=== PATIENT | female | born 1945 | race Hispanic/Latino ===

== ENCOUNTER 2019-12-20 19:05 | IRF | payer BC, MEDICARE, OTHER, SELFPAY ==
--- NOTE | 2019-12-20 21:43 | ADMGEN ---
This patient, Madeleine Aponte, was admitted to [facility] Room 222-01 at 1905. Patient/family oriented to hospital policies and general routines including ID bracelet, bed and alarms, visiting hours, pain management, procedures, bathroom and other care routines, personal items, smoking policy, room service/diet, and visiting hours. Valuables list has been completed. Information on how to activate the Rapid Response Team has been discussed. Patient/Family are encouraged to report perceived risks to care and to ask questions if they do not understand what they are told or what they should do.
[2019-12-20 21:59] VITALS: BP 125/62; PULSE 65; RESP 18; TEMP 36.1; O2SAT 98
[2019-12-20 22:00] VITALS: BMI 26.2
[2019-12-20] MEDS: AMITRIPTYLINE HCL 25 MG TABLET PO (22:42)
[2019-12-20] MEDS: IBUPROFEN 400 MG TABLET PO (23:19)
[2019-12-21] VITALS: BP 125/62; PULSE 65; RESP 18; TEMP 36.1; O2SAT 98
[2019-12-21] MEDS: IBUPROFEN 400 MG TABLET PO (05:05)
[2019-12-21 05:13] LABS: Basophils Percent Auto 0.4 % (0.2-1.2); Eosinophils Absolute Auto 0.2 K/mm3 (0-0.3); Eosinophils Percent Auto 3.8 % (0-4.4); Hematocrit 35.6 % (37.0-47.0); Hemoglobin 11.8 g/dL (12.0-15.0); Immature Granulocyte Absolute 0.02 K/mm3 (0.00-0.031); Immature Granulocyte Percent A 0.4 % (0-0.5); Lymphocytes Absolute Auto 1.28 K/mm3 (0.9-3.2); Lymphocytes Percent Auto 23.3 % (18.3-44.2); Mean Corpuscular HGB Conc 33.1 g/dl (32-36); Mean Corpuscular Hemoglobin 29.4 pg (26-34); Mean Corpuscular Volume 88.8 fl (80-100); Mean Platelet Volume 8.5 fl (7.4-10.4); Monocytes Absolute Auto 0.5 K/mm3 (0.1-0.6); Monocytes Percent Auto 9.1 % (2.6-8.5); Neutrophils Absolute Auto 3.5 K/mm3 (1.3-6.7); Platelet Count Result 222 k/mm3 (150-375); Red Blood Count 4.01 M/mm3 (4.2-5.4); Red Cell Distribution Width 13.1 % (11.5-14.5); White Blood Count 5.5 K/mm3 (4.5-10.0)
[2019-12-21 05:26] LABS: Blood Urea Nitrogen 19 mg/dL (7-17); Calcium 8.8 mg/dL (8.4-10.2); Carbon Dioxide 25 mmol/L (22-30); Chloride 101 mmol/L (98-107); Estimated CRCL calculation 57 ml/min; Estimated Glomerular Filt Rate > 60; Glucose 105 mg/dL (65-105); Potassium 4.4 mmol/L (3.4-5.0); Sodium 134 mmol/L (137-145)
[2019-12-21 05:27] LABS: Hemoglobin A1C 6.1 % (<5.7)
[2019-12-21 06:00] VITALS: BP 110/44; PULSE 60; RESP 18; TEMP 36.1; O2SAT 95
[2019-12-21] MEDS: CYANOCOBALAMIN 250 MCG TABLET PO (10:13)
[2019-12-21] MEDS: ROSUVASTATIN 5 MG TABLET PO (10:13)
[2019-12-21] MEDS: SENNA/DOCUSATE SODIUM TABLET 1 TAB PO ×2 (10:13→17:49)
[2019-12-21] MEDS: levETIRAcetam 500 MG TABLET 1000 MG PO ×2 (10:13→17:48)
[2019-12-21] MEDS: LORATADINE 10 MG TABLET PO (10:14)
[2019-12-21] MEDS: metFORMIN HCL 500 MG TABLET 1000 MG PO (10:14)
[2019-12-21] MEDS: FAMOTIDINE 20 MG TABLET 40 MG PO (10:14)
[2019-12-21] MEDS: ASPIRIN 81 MG ENTERIC TABLET PO (10:14)
[2019-12-21] MEDS: MICONAZOLE NITRATE 2% CREAM 30 GM TUBE 1 APPLIC TOPICAL ×2 (10:15→17:50)
[2019-12-21] MEDS: MELOXICAM 7.5 MG TABLET 15 MG PO (10:15)
[2019-12-21] MEDS: VALACYCLOVIR HCL 500 MG TABLET 1000 MG PO (10:16)
--- NOTE | 2019-12-21 11:04 | PCCCNOTE ---
On 12/21/19, the student, [Bud Erickson ], provided care and completed [facility] documentation on this patient. I have reviewed the student's documentation and agree with the findings.
[2019-12-21 11:26] LABS: Glucose Point of Care 150 (65-105)
--- NOTE | 2019-12-21 11:30 | WPDREHABHP ---
H&P: HPI History of Present Illness Chief complaint: right frontal subarachnoid hemorrhage Narrative: Madeleine Aponte is a 74 year old female HISTORY OF PRESENT ILLNESS: The patient's primary rehab impairment category is 0 2-brain dysfunction-traumatic The etiologic diagnosis is right frontal subarachnoid hemorrhage I saw this patient [id number] on December 21, 2019 at 11:30 a.m. The patient is a 74-year-old right-handed [place] woman with a past medical history of diabetes mellitus, hyperlipidemia, diverticulosis, and depression who was in her usual state of health until the morning of December 14, 2019 when she was walking to her car and slipped on a patch of ice. She fell backward and hit the side of the head. She did not lose consciousness as she could recall best. She was able to stand a but did notice some neck pain. She went to urgent care where head CT was performed. She fell again and December 15, 2019 in a similar manner while walking across her driveway. The patient recalls experiencing a sudden onset of tonic is contractures of her left arm and then and inability to recall subsequent events. Her sister witnessed the 2nd fall and reported loss of consciousness and whole body shaking lasting 1 to 2 minutes. She was taken to [facility] and while transporting to the CT scan did she experience an other event. Head CT demonstrated an area of right frontal hyperdensity concerning for small subarachnoid hemorrhage. The patient was transferred to [facility] for further management. A chest x-ray and urinalysis upon arrival were unremarkable. CT of the cervical him as the spine was negative for fracture brain MRI can from the subarachnoid hemorrhage with associated focal gyriform edema. She was loaded with Keppra 2 gram in the emergency room department. Her hospitalization has been significant for hypotension a mild traumatic brain injury herpes hyperlipidemia and depression. The hypertension was attributed to the fosphenytoin given at [facility] and has resolved, the mild traumatic brain injury is being treated with Keppra 1 gram b.i.d. for which she will remain for at least for 6 months herpes is chronic and she remains on her home dose of Valtrex, hyperlipidemia being treated with home dose of rosuvastatin and depression medications currently being held in light of the brain injury. She passed a swallow study and is on a regular consistent carbohydrate diet. Pain is controlled with oral pain medication. DVT prophylaxis with the sequential compression devices Therapy was initiated at the acute care facility and the patient transferred to us from [facility] on December 20, 2019 on FALLS OR SURGERIES: The patient has had no major surgeries in the 100 days prior to admission. They had falls in the past year. They had falls with injury in the past year. PAST MEDICAL HISTORY: type 2 diabetes mellitus, hyperlipidemia, herpes zoster of the sacral dermatome, diverticulosis, depression, myositis, shoulder pain. PAST SURGICAL HISTORY: Appendectomy, cardiac catheterization, cholecystectomy, colonoscopy, hernia repair. SOCIAL HISTORY: Patient lives independently in a 1 level home with the level entry. She is but her is stationed in [employer] [facility]. She is completely independent prior with no assistive device. She works part-time at the [employer]. Her plan is to return to work. FAMILY HISTORY: Please refer to my H and P PRIOR LEVEL OF FUNCTION: Eating was INDEPENDENT Oral Care was INDEPENDENT Toileting Hygiene was INDEPENDENT Shower/Bathing was INDEPENDENT Upper Body Dressing was INDEPENDENT Lower Body Dressing was INDEPENDENT Donning/[place] Footwear was INDEPENDENT Rolling Left and Right was INDEPENDENT Sit to Lying was INDEPENDENT Lying to Sitting was INDEPENDENT Sit to Stand was INDEPENDENT Bed to Chair Transfers was INDEPE
[2019-12-21] MEDS: ACETAMINOPHEN 500 MG TABLET 1000 MG PO (12:37)
[2019-12-21 12:47] VITALS: BMI 26.2
[2019-12-21 14:00] VITALS: BP 122/58; PULSE 68; RESP 20; TEMP 36.2; O2SAT 100
--- NOTE | 2019-12-21 14:45 | PCNSR ---
On 12/21/19, the student, Jaja Dunne, provided care and completed [facility] documentation on this patient. I have reviewed the student's documentation and agree with the findings.
[2019-12-21] MEDS: metFORMIN HCL 500 MG TABLET PO (17:49)
[2019-12-21 20:24] VITALS: BP 125/44; PULSE 66; RESP 18; TEMP 36.5; O2SAT 96
[2019-12-21 20:46] LABS: Glucose Point of Care 152 (65-105)
[2019-12-21] MEDS: AMITRIPTYLINE HCL 25 MG TABLET PO (21:08)
[2019-12-22 06:08] VITALS: BP 128/76; PULSE 72; RESP 20; TEMP 36.4; O2SAT 98
[2019-12-22 07:40] LABS: Glucose Point of Care 113 (65-105)
[2019-12-22] MEDS: CYANOCOBALAMIN 250 MCG TABLET PO (10:12)
[2019-12-22] MEDS: metFORMIN HCL 500 MG TABLET PO ×2 (10:12→18:09)
[2019-12-22] MEDS: ASPIRIN 81 MG ENTERIC TABLET PO (10:12)
[2019-12-22] MEDS: FAMOTIDINE 20 MG TABLET 40 MG PO (10:12)
[2019-12-22] MEDS: SENNA/DOCUSATE SODIUM TABLET 1 TAB PO ×2 (10:12→18:09)
[2019-12-22] MEDS: LORATADINE 10 MG TABLET PO (10:13)
[2019-12-22] MEDS: levETIRAcetam 500 MG TABLET 1000 MG PO ×2 (10:13→18:09)
[2019-12-22] MEDS: MELOXICAM 7.5 MG TABLET 15 MG PO (10:13)
[2019-12-22] MEDS: MICONAZOLE NITRATE 2% CREAM 30 GM TUBE 1 APPLIC TOPICAL ×2 (10:14→18:09)
[2019-12-22] MEDS: ROSUVASTATIN 5 MG TABLET PO (10:14)
[2019-12-22] MEDS: OMEGA 3 POLYUNSAT FATTY ACIDS 1 GM CAP PO (10:14)
[2019-12-22] MEDS: VALACYCLOVIR HCL 500 MG TABLET 1000 MG PO (10:14)
--- NOTE | 2019-12-22 11:36 | RPD ---
INDIVIDUALIZED PLAN OF CARE FOR Madeleine Aponte Brief Synthesis of Pre-Admission Screen, Post-Admission Evaluation and Therapy Evaluations: The patient presents to rehab with right frontal subarachnoid hemorrhage. Comorbidities include hypertension, hyperlipidemia, diabetes mellitus, hypotension, acute pain, herpes zoster, diverticulosis, depression, recurrent falls. The patient requires physician services for medical oversight, management of present comorbidities, neurology services, and pain management. The patient requires nursing services for frequent neuro checks, medication management and education, pressure relief and skin care management, monitoring of labs, diabetes management and education, and fall/safety precautions. Deficits include:ADLs, Balance, Endurance, Mobility, Pain Management, ROM, Safety, Strength, Transfers Swedish Masseuse/Case Management for: Discharge Planning and Patient/Family Counseling Physical Therapy: 5 days per week for 75 minutes. Treatments may include: Therapeutic Exercise, Gait Training, Neuromuscular Re-education, Transfer Training, Community Reintegration, Bed Mobility, Patient/Family Education, Wheelchair Mobility Group Therapy/Concurrent Therapy Rationales: -Improve attention span during functional activities in a distracted environment. -Enhance problem solving and/or adequate judgment skills during functional activities in a distracted environment. -Promote increased safety awareness in a distracted environment to reduce fall risk with functional tasks, transfers, and ambulation to allow a more safe, self-sufficient return to the home environment. -Improve dynamic balance skills to promote safety and independence with functional activities in a distracted environment for maximum gain. Occupational Therapy: 5 days per week for 75 minutes. Treatments may include: Therapeutic Exercise, Therapeutic Activity, Cognitive Training, Self-Care Transfer Training, Community Reintegration, Home Management, Patient/Family Education, Wheelchair Mobility Training, Energy Conservation Training Group Therapy/Concurrent Therapy Rationales: -Allow therapist to observe and teach generalization and carry-over of skills learned in individual therapy. -Enhance problem solving and sequencing skills during therapeutic activities in a distracted environment. -Promote increased safety awareness in a realistic setting to reduce fall risk with functional tasks due to visual and verbal distractions. -Increase functional level with ADLs, ADL transfers and use of adaptive equipment through therapeutic activities with others while promoting safety to allow a more safe, self-sufficient return home. Speech Therapy: 5 days per week for 30 minutes. Treatments may include: Dysphasia Therapy, Speech/Language/Communication Therapy, Cognitive Training, Patient/Family Education Group Therapy/Concurrent Therapy - Rationale: -Allow therapist to observe and teach generalization and carry-over of skills learned in individual therapy. -Improve comprehension skills with complex or abstract ideas through discussion in a realistic setting. -Enhance problem solving skills with complex issues during activities in a distracted environment. -Promote increased memory skills and concentration in a distracted environment for a safe transition home. -Improve attention and focus with language/communication skills in a realistic and supportive therapeutic setting. -Allow for practice of expression of basic needs and ideas through functional activities with others. Medical Prognosis: Good Anticipated Length of Stay: 7 days Rehab Goals: Eating Goal: 06-Independent Oral Hygiene Goal: 06-Independent Toileting Hygiene Goal: 06-Independent Shower/Bathe Self Goal: 06-Independent Upper Body Dressing Goal: 06-Independent Lower Body Dressing Goal: 06-Independent Putting On/Taking Off Footwear Goal: 06-Independent Rolling Left and Right Goal: 06-Independent Sit to Lying Goal: 06-
[2019-12-22] MEDS: IBUPROFEN 400 MG TABLET PO (12:19)
[2019-12-22 12:44] LABS: Glucose Point of Care 70 (65-105)
[2019-12-22 14:00] VITALS: BP 113/56; PULSE 72; RESP 18; TEMP 36.6; O2SAT 97
--- NOTE | 2019-12-22 14:39 | WPDNEURORHBP ---
Subjective Date/time seen: 12/22/19 14:39 Interval history: patient complains of positional headache when she stands up otherwise quite comfortable sitting and lying down is still has repetition of the words and cognitive deficit does not realize the fact on repeated answering that she did have subarachnoid hemorrhage and it has compromised her cognitive function but on the other hand quite pleasant and engage in therapy and motivated to go home denies any chest pain shortness of breath fever chills or sore throat Review of Systems Constitutional: Constitutional: Reports no additional constitutional complaints Eyes: Eyes: Reports no additional eye complaints ENT: Reports system reviewed and no additional complaints, except as documented Cardiovascular: Cardiovascular: Reports no additional cardiovascular complaints Respiratory: Respiratory: Reports no additional respiratory complaints Gastrointestinal: Gastrointestinal: Reports no additional gastrointestinal complaints Genitourinary: Genitourinary: Reports no additional female genitourinary complaints Musculoskeletal: Musculoskeletal: Reports no additional musculoskeletal complaints Integumentary/Breasts: Skin/Breast: Reports system reviewed and no additional complaints, except as docu Neurologic: Reports system reviewed and no additional complaints, except as documented Psychiatric: Psychiatric: Reports no additional psychiatric complaints Functional Status Ambulation Ability Ability to Ambulate 10 Feet: Contact Guard Ability to Ambulate 50 Feet With 2 Turns: Contact Guard Ability to Ambulate 150 Feet: Contact Guard Ambulation Assistive Devices: None Transfers Ability Ability to Transfer In/Out of Chair: Standby Assistance Exam Const: General: comfortable and no acute distress HENMT: General nose exam: Normal nares present Mouth: Yes moist mucous membranes Eyes: General: appearance normal, both eyes and all related structures Neck: Neck: supple and no JVD Resp: Effort & Inspection: normal respiratory effort Auscultation: clear to auscultation bilaterally Cardio: Rate: regular rate Rhythm: regular rhythm GI: GI Palp: Yes Soft to palpation Auscultation: normal bowel sounds Skin: General skin exam: normal color and no rashes or lesions noted Neuro: Other: patient has cognitive deficit with the loss of short-term memory repetitious in her expression otherwise no aphasia or dysarthria she does have a left more than the right-sided weakness DIS palates and higher level balance issues which needs to be observed for fall prevention Objective Data Vital Signs Vital Signs: Vital Signs - 24 hr 12/21/19 20:24 12/22/19 06:08 Temperature 36.5 C 36.4 C Pulse Rate 66 72 Respiratory Rate 18 20 Blood Pressure 125/44 L 128/76 Pulse Oximetry 96 98 Intake/Output Intake/Output: Intake & Output 12/19/19 12/20/19 12/21/19 12/22/19 23:59 23:59 23:59 23:59 Intake Total 720 360 Balance 720 360 Meds/Results Medications: Active Medications Generic Name Dose Route Start Last Admin Trade Name Freq PRN Reason Stop Dose Admin Acetaminophen 1,000 mg 12/20/19 21:35 12/21/19 12:37 Tylenol Tablet PO 1,000 mg TID PRN Administration MILD PAIN 1-3 Amitriptyline HCl 25 mg 12/20/19 21:00 12/21/19 21:08 Elavil PO 25 mg HS FLAKO Administration Aspirin 81 mg 12/21/19 09:00 12/22/19 10:12 Aspirin Ec PO 81 mg DAILY FLAKO Administration Cyanocobalamin 250 mcg 12/21/19 09:00 12/22/19 10:12 Vitamin B-12 Tab PO 250 mcg QAM FLAKO Administration Famotidine 40 mg 12/21/19 09:00 12/22/19 10:12 Pepcid PO 40 mg DAILY FLAKO Administration Fish Oil 1 gm 12/21/19 09:00 12/22/19 10:14 Lovaza PO 1 gm QAM FLAKO Administration Ibuprofen 400 mg 12/20/19 21:25 12/22/19 12:19 Motrin PO 400 mg Q4H PRN Administration Pain (Scale Score 4-6) Levetiracetam 1,000 mg 12/21/19 09:00 12/22/19 10:13 Ke
[2019-12-22 17:48] LABS: Glucose Point of Care 137 (65-105)
[2019-12-22] MEDS: AMITRIPTYLINE HCL 25 MG TABLET PO (20:57)
[2019-12-22 21:52] LABS: Glucose Point of Care 188 (65-105)
[2019-12-22 22:00] VITALS: BP 121/40; PULSE 64; RESP 18; TEMP 36.4; O2SAT 94
[2019-12-23 06:00] VITALS: BP 130/60; PULSE 62; RESP 18; TEMP 36.3; O2SAT 94
[2019-12-23 07:06] LABS: Glucose Point of Care 117 (65-105)
[2019-12-23] MEDS: metFORMIN HCL 500 MG TABLET PO ×2 (09:50→16:56)
[2019-12-23] MEDS: levETIRAcetam 500 MG TABLET 1000 MG PO ×2 (09:50→16:56)
[2019-12-23] MEDS: FAMOTIDINE 20 MG TABLET 40 MG PO (09:50)
[2019-12-23] MEDS: ROSUVASTATIN 5 MG TABLET PO (09:51)
[2019-12-23] MEDS: OMEGA 3 POLYUNSAT FATTY ACIDS 1 GM CAP PO (09:51)
[2019-12-23] MEDS: VALACYCLOVIR HCL 500 MG TABLET 1000 MG PO (09:51)
[2019-12-23] MEDS: MELOXICAM 7.5 MG TABLET 15 MG PO (09:51)
[2019-12-23] MEDS: SENNA/DOCUSATE SODIUM TABLET 1 TAB PO ×2 (09:52→16:56)
[2019-12-23] MEDS: ASPIRIN 81 MG ENTERIC TABLET PO (09:52)
[2019-12-23] MEDS: CYANOCOBALAMIN 250 MCG TABLET PO (09:53)
[2019-12-23] MEDS: LORATADINE 10 MG TABLET PO (09:53)
[2019-12-23] MEDS: MICONAZOLE NITRATE 2% CREAM 30 GM TUBE 1 APPLIC TOPICAL ×2 (09:54→16:56)
--- NOTE | 2019-12-23 11:15 | WPDNEURORHBP ---
Subjective Date/time seen: December 23, 2019 at 11:15 a.m. Interval history: patient is here with the traumatic subarachnoid hemorrhage with a history of having at least 2 or maybe 3 seizures she is recuperating quite well has not had any further seizures however has cognitive dysfunction the but Ativan her questions all the time I see her also complaining of positional headache when she gets up however doing fairly well engage in therapy without any nausea vomiting or change in overall neurological status no chest pain no shortness of breath no fever no chills sore throat and eating fairly well Review of Systems Constitutional: Constitutional: Reports no additional constitutional complaints Eyes: Eyes: Reports no additional eye complaints ENT: Reports system reviewed and no additional complaints, except as documented Cardiovascular: Cardiovascular: Reports no additional cardiovascular complaints Respiratory: Respiratory: Reports no additional respiratory complaints Gastrointestinal: Gastrointestinal: Reports no additional gastrointestinal complaints Genitourinary: Genitourinary: Reports no additional female genitourinary complaints Musculoskeletal: Musculoskeletal: Reports no additional musculoskeletal complaints Integumentary/Breasts: Skin/Breast: Reports system reviewed and no additional complaints, except as docu Neurologic: Reports system reviewed and no additional complaints, except as documented Functional Status Ambulation Ability Ability to Ambulate 10 Feet: Contact Guard Ability to Ambulate 50 Feet With 2 Turns: Contact Guard Ability to Ambulate 150 Feet: Contact Guard Ambulation Assistive Devices: None Transfers Ability Ability to Transfer In/Out of Chair: Independent Exam Const: General: comfortable and no acute distress HENMT: General nose exam: Normal nares present Mouth: Yes moist mucous membranes Eyes: General: appearance normal, both eyes and all related structures Neck: Neck: supple and no JVD Resp: Effort & Inspection: normal respiratory effort Auscultation: clear to auscultation bilaterally Cardio: Rate: regular rate Rhythm: regular rhythm GI: GI Palp: Yes Soft to palpation Auscultation: normal bowel sounds Skin: General skin exam: normal color and no rashes or lesions noted Neuro: Other: patient is well oriented time place and person however side has some memory deficit and keeps on asking the same questions repeatedly and focused on the positional headache which I have explained to her on many occasions almost every day that these will slowly taper off she does have a balance issues and the problem and the weakness particularly the left side more so than the right side otherwise quite stable and engage in therapy quite well Extrem: General: normal to inspection Objective Data Vital Signs Vital Signs: Vital Signs - 24 hr 12/23/19 14:00 12/23/19 22:00 12/24/19 06:00 Temperature 36.1 C L 36.5 C 36.2 C L Pulse Rate 73 63 56 L Respiratory Rate 18 16 16 Blood Pressure 140/72 131/65 122/61 Pulse Oximetry 99 98 96 Intake/Output Intake/Output: Intake & Output 12/21/19 12/22/19 12/23/19 12/24/19 23:59 23:59 23:59 23:59 Intake Total 720 720 800 240 Balance 720 720 800 240 Meds/Results Medications: Active Medications Generic Name Dose Route Start Last Admin Trade Name Freq PRN Reason Stop Dose Admin Acetaminophen 1,000 mg 12/20/19 21:35 12/23/19 16:55 Tylenol Tablet PO 1,000 mg TID PRN Administration MILD PAIN 1-3 Amitriptyline HCl 25 mg 12/20/19 21:00 12/23/19 20:21 Elavil PO 25 mg HS FLAKO Administration Aspirin 81 mg 12/21/19 09:00 12/24/19 09:41 Aspirin Ec PO 81 mg DAILY FLAKO Administration Cyanocobalamin 250 mcg 12/21/19 09:00 12/24/19 09:41 Vitamin B-12 Tab PO 250 mcg QAM FLAKO Administration Famotidine 40 mg 12/21/19 09:00 12/24/19 09:42 Pepcid PO 40 mg DAILY FLAKO Administration Fish Oil 1 gm 12/09
[2019-12-23 12:20] LABS: Glucose Point of Care 68 (65-105)
[2019-12-23 14:00] VITALS: BP 140/72; PULSE 73; RESP 18; TEMP 36.1; O2SAT 99
[2019-12-23] MEDS: ACETAMINOPHEN 500 MG TABLET 1000 MG PO (16:55)
[2019-12-23 17:21] LABS: Glucose Point of Care 112 (65-105)
[2019-12-23] MEDS: AMITRIPTYLINE HCL 25 MG TABLET PO (20:21)
[2019-12-23 21:26] LABS: Glucose Point of Care 122 (65-105)
[2019-12-23 22:00] VITALS: BP 131/65; PULSE 63; RESP 16; TEMP 36.5; O2SAT 98
[2019-12-24 06:00] VITALS: BP 122/61; PULSE 56; RESP 16; TEMP 36.2; O2SAT 96
[2019-12-24 07:07] LABS: Glucose Point of Care 101 (65-105)
[2019-12-24] MEDS: metFORMIN HCL 500 MG TABLET PO ×2 (09:41→18:01)
[2019-12-24] MEDS: SENNA/DOCUSATE SODIUM TABLET 1 TAB PO (09:41)
[2019-12-24] MEDS: CYANOCOBALAMIN 250 MCG TABLET PO (09:41)
[2019-12-24] MEDS: ASPIRIN 81 MG ENTERIC TABLET PO (09:41)
[2019-12-24] MEDS: levETIRAcetam 500 MG TABLET 1000 MG PO ×2 (09:42→18:02)
[2019-12-24] MEDS: VALACYCLOVIR HCL 500 MG TABLET 1000 MG PO (09:42)
[2019-12-24] MEDS: LORATADINE 10 MG TABLET PO (09:42)
[2019-12-24] MEDS: MICONAZOLE NITRATE 2% CREAM 30 GM TUBE 1 APPLIC TOPICAL ×2 (09:42→18:01)
[2019-12-24] MEDS: OMEGA 3 POLYUNSAT FATTY ACIDS 1 GM CAP PO (09:42)
[2019-12-24] MEDS: MELOXICAM 7.5 MG TABLET 15 MG PO (09:42)
[2019-12-24] MEDS: ROSUVASTATIN 5 MG TABLET PO (09:42)
[2019-12-24] MEDS: FAMOTIDINE 20 MG TABLET 40 MG PO (09:42)
[2019-12-24 12:15] LABS: Glucose Point of Care 124 (65-105)
[2019-12-24 14:00] VITALS: BP 128/66; PULSE 62; RESP 18; TEMP 36.4; O2SAT 98
--- NOTE | 2019-12-24 14:12 | WPDNEURORHBP ---
Subjective Date/time seen: 12/24/19 14:12 Interval history: this 74-year-old woman is here after suffering from traumatic subarachnoid hemorrhage followed by seizure activity and doing fairly well she is definitely better in the past 24 hours and is not asking repetitive question as she did before the headache which is positional is improving quite a bit and she was able to walk 600 feet with little assistance without any significant headache nausea vomiting chest pain shortness of breath etc she did not have any further seizures since she has been here Review of Systems Constitutional: Constitutional: Reports no additional constitutional complaints Eyes: Eyes: Reports no additional eye complaints ENT: Reports system reviewed and no additional complaints, except as documented Cardiovascular: Cardiovascular: Reports no additional cardiovascular complaints Respiratory: Respiratory: Reports no additional respiratory complaints Gastrointestinal: Gastrointestinal: Reports no additional gastrointestinal complaints Genitourinary: Genitourinary: Reports no additional female genitourinary complaints Musculoskeletal: Musculoskeletal: Reports no additional musculoskeletal complaints Integumentary/Breasts: Skin/Breast: Reports system reviewed and no additional complaints, except as docu Neurologic: Reports system reviewed and no additional complaints, except as documented Psychiatric: Psychiatric: Reports no additional psychiatric complaints Functional Status Ambulation Ability Ability to Ambulate 10 Feet: Contact Guard Ability to Ambulate 50 Feet With 2 Turns: Contact Guard Ability to Ambulate 150 Feet: Contact Guard Ambulation Assistive Devices: None Transfers Ability Ability to Transfer In/Out of Chair: Independent Exam Const: General: comfortable and no acute distress HENMT: General nose exam: Normal nares present Mouth: Yes moist mucous membranes Eyes: General: appearance normal, both eyes and all related structures Neck: Neck: supple and no JVD Resp: Effort & Inspection: normal respiratory effort Auscultation: clear to auscultation bilaterally Cardio: Rate: regular rate Rhythm: regular rhythm GI: GI Palp: Yes Soft to palpation Auscultation: normal bowel sounds Skin: General skin exam: normal color and no rashes or lesions noted Neuro: Other: patient's mental status is definitely getting better she is not as repetitious and the able to remember things better than past 48 hours engage in therapy apart from cognitive dysfunction she still has she really does not have a whole lot more deficit and in fact overall has improved Extrem: General: normal to inspection Objective Data Vital Signs Vital Signs: Vital Signs - 24 hr 12/23/19 22:00 12/24/19 06:00 Temperature 36.5 C 36.2 C L Pulse Rate 63 56 L Respiratory Rate 16 16 Blood Pressure 131/65 122/61 Pulse Oximetry 98 96 Intake/Output Intake/Output: Intake & Output 12/21/19 12/22/19 12/23/19 12/24/19 23:59 23:59 23:59 23:59 Intake Total 720 720 800 240 Balance 720 720 800 240 Meds/Results Medications: Active Medications Generic Name Dose Route Start Last Admin Trade Name Freq PRN Reason Stop Dose Admin Acetaminophen 1,000 mg 12/20/19 21:35 12/23/19 16:55 Tylenol Tablet PO 1,000 mg TID PRN Administration MILD PAIN 1-3 Amitriptyline HCl 25 mg 12/20/19 21:00 12/23/19 20:21 Elavil PO 25 mg HS FLAKO Administration Aspirin 81 mg 12/21/19 09:00 12/24/19 09:41 Aspirin Ec PO 81 mg DAILY FLAKO Administration Cyanocobalamin 250 mcg 12/21/19 09:00 12/24/19 09:41 Vitamin B-12 Tab PO 250 mcg QAM FLAKO Administration Famotidine 40 mg 12/21/19 09:00 12/24/19 09:42 Pepcid PO 40 mg DAILY FLAKO Administration Fish Oil 1 gm 12/21/19 09:00 12/24/19 09:42 Lovaza PO 1 gm QAM FLAKO Administration Ibuprofen 400 mg 12/20/19 21:25 12/22/19 12:19 Motrin PO 400 mg Q4H PRN Adminis
[2019-12-24 17:34] LABS: Glucose Point of Care 151 (65-105)
[2019-12-24] MEDS: AMITRIPTYLINE HCL 25 MG TABLET PO (20:10)
[2019-12-24 21:15] VITALS: BP 103/51; PULSE 63; RESP 20; TEMP 36.2; O2SAT 97
[2019-12-24 21:18] LABS: Glucose Point of Care 186 (65-105)
[2019-12-25 06:00] VITALS: BP 98/77; PULSE 63; RESP 20; TEMP 36.3; O2SAT 98
[2019-12-25 06:59] LABS: Glucose Point of Care 100 (65-105)
[2019-12-25] MEDS: ASPIRIN 81 MG ENTERIC TABLET PO (09:53)
[2019-12-25] MEDS: metFORMIN HCL 500 MG TABLET PO ×2 (09:53→17:56)
[2019-12-25] MEDS: CYANOCOBALAMIN 250 MCG TABLET PO (09:53)
[2019-12-25] MEDS: SENNA/DOCUSATE SODIUM TABLET 1 TAB PO (09:53)
[2019-12-25] MEDS: FAMOTIDINE 20 MG TABLET 40 MG PO (09:53)
[2019-12-25] MEDS: levETIRAcetam 500 MG TABLET 1000 MG PO ×2 (09:53→17:56)
[2019-12-25] MEDS: ROSUVASTATIN 5 MG TABLET PO (09:54)
[2019-12-25] MEDS: VALACYCLOVIR HCL 500 MG TABLET 1000 MG PO (09:54)
[2019-12-25] MEDS: LORATADINE 10 MG TABLET PO (09:54)
[2019-12-25] MEDS: MELOXICAM 7.5 MG TABLET 15 MG PO (09:54)
[2019-12-25] MEDS: OMEGA 3 POLYUNSAT FATTY ACIDS 1 GM CAP PO (09:54)
[2019-12-25] MEDS: MICONAZOLE NITRATE 2% CREAM 30 GM TUBE 1 APPLIC TOPICAL ×2 (09:56→17:57)
[2019-12-25 12:32] LABS: Glucose Point of Care 82 (65-105)
[2019-12-25 14:00] VITALS: BP 105/61; PULSE 58; RESP 16; TEMP 36.2; O2SAT 97
[2019-12-25 18:05] LABS: Glucose Point of Care 153 (65-105)
[2019-12-25] MEDS: AMITRIPTYLINE HCL 25 MG TABLET PO (21:57)
[2019-12-25 21:59] VITALS: BP 104/43; PULSE 64; RESP 18; TEMP 36.4; O2SAT 100
[2019-12-25 22:11] LABS: Glucose Point of Care 158 (65-105)
[2019-12-26 06:00] VITALS: BP 104/56; PULSE 55; RESP 18; TEMP 36.6; O2SAT 96
[2019-12-26 06:54] LABS: Glucose Point of Care 94 (65-105)
[2019-12-26] MEDS: metFORMIN HCL 500 MG TABLET PO ×2 (10:41→17:19)
[2019-12-26] MEDS: ASPIRIN 81 MG ENTERIC TABLET PO (10:42)
[2019-12-26] MEDS: levETIRAcetam 500 MG TABLET 1000 MG PO ×2 (10:42→17:19)
[2019-12-26] MEDS: OMEGA 3 POLYUNSAT FATTY ACIDS 1 GM CAP PO (10:43)
[2019-12-26] MEDS: LORATADINE 10 MG TABLET PO (10:43)
[2019-12-26] MEDS: ROSUVASTATIN 5 MG TABLET PO (10:43)
[2019-12-26] MEDS: MELOXICAM 7.5 MG TABLET 15 MG PO (10:43)
[2019-12-26] MEDS: CYANOCOBALAMIN 250 MCG TABLET PO (10:43)
[2019-12-26] MEDS: SENNA/DOCUSATE SODIUM TABLET 1 TAB PO ×2 (10:44→17:19)
[2019-12-26] MEDS: MICONAZOLE NITRATE 2% CREAM 30 GM TUBE 1 APPLIC TOPICAL ×2 (10:44→17:18)
[2019-12-26] MEDS: VALACYCLOVIR HCL 500 MG TABLET 1000 MG PO (10:44)
[2019-12-26] MEDS: FAMOTIDINE 20 MG TABLET 40 MG PO (10:44)
[2019-12-26 11:47] LABS: Glucose Point of Care 74 (65-105)
[2019-12-26 14:00] VITALS: BP 123/54; PULSE 61; RESP 18; TEMP 36.2; O2SAT 100
--- NOTE | 2019-12-26 14:04 | WPDNEURORHBP ---
Subjective Date/time seen: 12/26/19 14:04 Interval history: this pleasant 74-year-old Columbian Somali woman is on the rehab floor after suffering from traumatic subarachnoid hemorrhage in the right frontal area she is doing fairly well does not have any specific complaints in fact her headaches are much better and she is almost close to being independent in activities of daily living without any falls or injuries she denies any chest pain shortness of breath fever chills sore throat diarrhea abdominal pain or vomiting Review of Systems Constitutional: Constitutional: Reports no additional constitutional complaints Eyes: Eyes: Reports no additional eye complaints ENT: Reports system reviewed and no additional complaints, except as documented Cardiovascular: Cardiovascular: Reports no additional cardiovascular complaints Respiratory: Respiratory: Reports no additional respiratory complaints Gastrointestinal: Gastrointestinal: Reports no additional gastrointestinal complaints Genitourinary: Genitourinary: Reports no additional female genitourinary complaints Musculoskeletal: Musculoskeletal: Reports no additional musculoskeletal complaints Integumentary/Breasts: Skin/Breast: Reports system reviewed and no additional complaints, except as docu Neurologic: Reports system reviewed and no additional complaints, except as documented Psychiatric: Psychiatric: Reports no additional psychiatric complaints Functional Status Ambulation Ability Ability to Ambulate 10 Feet: Independent Ability to Ambulate 50 Feet With 2 Turns: Independent Ability to Ambulate 150 Feet: Independent Ambulation Assistive Devices: None Transfers Ability Ability to Transfer In/Out of Chair: Independent Exam Const: General: comfortable and no acute distress HENMT: General nose exam: Normal nares present Mouth: Yes moist mucous membranes Eyes: General: appearance normal, both eyes and all related structures Neck: Neck: supple and no JVD Resp: Effort & Inspection: normal respiratory effort Auscultation: clear to auscultation bilaterally Cardio: Rate: regular rate Rhythm: regular rhythm GI: GI Palp: Yes Soft to palpation Auscultation: normal bowel sounds Skin: General skin exam: normal color and no rashes or lesions noted Neuro: Other: patient's cognitive deficit has much improved she is more able to be convinced and rationalize better continues to have normal speech and language function normal cranial exam gonzalez and much better more and high balance controlled than when she came Extrem: General: normal to inspection Objective Data Vital Signs Vital Signs: Vital Signs - 24 hr 12/25/19 21:59 12/26/19 06:00 Temperature 36.4 C L 36.6 C Pulse Rate 64 55 L Respiratory Rate 18 18 Blood Pressure 104/43 L 104/56 L Pulse Oximetry 100 96 Intake/Output Intake/Output: Intake & Output 12/23/19 12/24/19 12/25/19 12/26/19 23:59 23:59 23:59 23:59 Intake Total 800 720 720 240 Balance 800 720 720 240 Meds/Results Medications: Active Medications Generic Name Dose Route Start Last Admin Trade Name Freq PRN Reason Stop Dose Admin Acetaminophen 1,000 mg 12/20/19 21:35 12/23/19 16:55 Tylenol Tablet PO 1,000 mg TID PRN Administration MILD PAIN 1-3 Amitriptyline HCl 25 mg 12/20/19 21:00 12/25/19 21:57 Elavil PO 25 mg HS FLAKO Administration Aspirin 81 mg 12/21/19 09:00 12/26/19 10:42 Aspirin Ec PO 81 mg DAILY FLAKO Administration Cyanocobalamin 250 mcg 12/21/19 09:00 12/26/19 10:43 Vitamin B-12 Tab PO 250 mcg QAM FLAKO Administration Famotidine 40 mg 12/21/19 09:00 12/26/19 10:44 Pepcid PO 40 mg DAILY FLAKO Administration Fish Oil 1 gm 12/21/19 09:00 12/26/19 10:43 Lovaza PO 1 gm QAM FLAKO Administration Ibuprofen 400 mg 12/20/19 21:25 12/22/19 12:19 Motrin PO 400 mg Q4H PRN Administration Pain (Scale Score 4-6) Levetiracetam 1,000 mg 12/21/19
[2019-12-26 16:46] LABS: Glucose Point of Care 121 (65-105)
[2019-12-26] MEDS: AMITRIPTYLINE HCL 25 MG TABLET PO (21:10)
[2019-12-26 21:36] LABS: Glucose Point of Care 89 (65-105)
[2019-12-26 21:51] VITALS: BP 102/49; PULSE 63; RESP 18; TEMP 36.1; O2SAT 95
[2019-12-27 06:00] VITALS: BP 112/56; PULSE 82; RESP 18; TEMP 36.4; O2SAT 98
[2019-12-27] MEDS: ACETAMINOPHEN 500 MG TABLET 1000 MG PO (06:32)
[2019-12-27 07:38] LABS: Glucose Point of Care 91 (65-105)
[2019-12-27] MEDS: ASPIRIN 81 MG ENTERIC TABLET PO (09:40)
[2019-12-27] MEDS: FAMOTIDINE 20 MG TABLET 40 MG PO (09:40)
[2019-12-27] MEDS: SENNA/DOCUSATE SODIUM TABLET 1 TAB PO (09:40)
[2019-12-27] MEDS: levETIRAcetam 500 MG TABLET 1000 MG PO (09:40)
[2019-12-27] MEDS: CYANOCOBALAMIN 250 MCG TABLET PO (09:40)
[2019-12-27] MEDS: metFORMIN HCL 500 MG TABLET PO (09:40)
[2019-12-27] MEDS: MICONAZOLE NITRATE 2% CREAM 30 GM TUBE 1 APPLIC TOPICAL (09:41)
[2019-12-27] MEDS: VALACYCLOVIR HCL 500 MG TABLET 1000 MG PO (09:41)
[2019-12-27] MEDS: OMEGA 3 POLYUNSAT FATTY ACIDS 1 GM CAP PO (09:41)
[2019-12-27] MEDS: MELOXICAM 7.5 MG TABLET 15 MG PO (09:41)
[2019-12-27] MEDS: ROSUVASTATIN 5 MG TABLET PO (09:41)
[2019-12-27] MEDS: LORATADINE 10 MG TABLET PO (09:41)
[2019-12-27 12:07] LABS: Glucose Point of Care 63 (65-105)
--- NOTE | 2020-01-02 00:57 | DS_ITS ---
DATE OF DISCHARGE: 12/27/2019 DISCHARGE REHAB DIAGNOSIS: Rehab impairment category of 02, brain dysfunction. There is traumatic and etiological diagnosis of right frontal subarachnoid hemorrhage. DISCHARGE ACTIVE COMORBID CONDITIONS: 1. Diabetes mellitus type 2. 2. Hyperlipidemia. 3. Herpes zoster sacral dermatome with pain. 4. Diverticulitis. 5. Depression. 6. Myositis. 7. Shoulder discomfort. REASON FOR ADMISSION: A 74-year-old right-handed Columbian German lady with past medical history of the problem as mentioned above, admitted to the hospital on 12/14/2019, when she was walking to her car and slipped on a patch of ice. She fell backwards with the side of her head. She did not become unconscious. She was stable to stand, but noted some neck pain. She went to an Urgent Care, where CT scan was performed, but unfortunately she fell again on 12/15/2019, in a similar manner while walking across her driveway with a sudden onset of tonic contracture of her left arm and then inability to recall subsequent events. Her sister witnessed the second fall and reported loss of consciousness and whole-body shaking for about 1 to 2 minutes. She was taken to [facility] while transporting to the CT scan. She experienced another event. Head CT scan revealed right frontal hyperdensity concerning for this small subarachnoid hemorrhage. The patient was transferred to [facility] for further management. Chest x-ray revealed no abnormality. CT of the cervical spine was negative for fracture. Brain MRI was noted with subarachnoid hemorrhage with associated focal gyriform edema. She was loaded with Keppra 2 g per day in the ER. During the hospitalization, she became hypotensive. She was noted to be hyperlipidemic and also was noted to be depressed. Hypertension was attributed to fosphenytoin given at the [facility] and was subsequently resolved. She was treated with Keppra 1 g twice a day, which was suggested to continue for 6 months. She has herpes in the past and has been taking valtrex on chronic basis. Her hyperlipidemia was treated with rosuvastatin and she was also being treated for the depression, but medicines were withheld at this time. Her swallow study was negative. Pain was controlled with the pain medication and she was transferred here for the rehab floor. FUNCTION MEASURE AT THE TIME OF ADMISSION: She was independent in eating, required setup for oral hygiene, supervision for toileting, bathing, setup for upper body dressing, supervision for lower body dressing, footwear. She was independent for rolling in bed, sit to lying, lying to sitting. She required supervision for sit to stand, chair transfer, toilet transfer, car transfer. She required partial assistance for 10 feet walking, 50 feet walking, 150 feet walking, walking 10 feet on uneven surfaces, curb or step, 4 steps. She was unable to take 12 steps on uneven surfaces. She required supervision for picking up object and wheelchair was not applicable. ANTICIPATED REHAB GOALS: Were to make her independent in all the modalities. LEVEL OF FUNCTION AT THE TIME OF DISCHARGE: She became independent eating, oral hygiene, toileting. She required setup for bathing. She became independent upper body dressing, lower body dressing, footwear, rolling in bed, sit to lying, lying to sitting, sit to stand, chair transfer, toilet transfer, car transfer, walking 10 feet, 50 feet with 2 turns, walking 150 feet as well. She was able to walk independently and 10 feet on uneven surfaces, curb or step, 4 steps, 12 steps, and also able to picking up object. HOSPITAL COURSE: During the hospitalization, she remained actively involved in the physical therapy and occupation therapy. No other consultants were involved in the care
== END 2019-12-27 13:31 | disposition home or self-care (01) | DRG 950 ==
PROVIDERS: Admitting Provider Psychiatry & Neurology Neurology; Visit Provider Psychiatry & Neurology Neurology
DX: S06.6X9D Traumatic subarachnoid hemorrhage with loss of consciousness of unspecified duration, subsequent encounter (principal); B00.9 Herpesviral infection, unspecified; E11.9 Type 2 diabetes mellitus without complications; E78.5 Hyperlipidemia, unspecified; F32.9 Major depressive disorder, single episode, unspecified; I95.9 Hypotension, unspecified; K57.90 Diverticulosis of intestine, part unspecified, without perforation or abscess without bleeding; R53.81 Other malaise; R26.9 Unspecified abnormalities of gait and mobility; R56.9 Unspecified convulsions; Z79.84 Long term (current) use of oral hypoglycemic drugs; M60.9 Myositis, unspecified
CPT/HCPCS: 36415; 80048; 83036; 85025; 87081; 92507; 96125; 97110; 97116; 97129; 97130; 97162; 97165; 97530; 97535; A9270

== ENCOUNTER 2022-05-21 17:33 | Emergency (ER) | payer BC, MEDICARE, OTHER, SELFPAY ==
--- NOTE | ~2022-05-21 | CT_ITS ---
EXAMINATION: CT abdomen pelvis w con DATE: 05/21/2022 19:48 INDICATION: Right-sided flank pain. TECHNIQUE: Computed tomography (CT) of the abdomen and pelvis was performed with 100 cc Omnipaque 350 intravenous contrast. The dose-length product was 354.23 mGy-cm. Automated exposure control and iter ative reconstruction technique were employed. COMPARISON: None. FINDINGS: Lung bases are unremarkable. Heart size normal. Status post cholecystectomy. The liver, spl een, pancreas, adrenal glands are unremarkable. There are small subcentimeter hypodensities of the ki dneys, most likely benign. No hydronephrosis. Nonobstructive bowel gas pattern. Colonic diverticulosi s without evidence for acute diverticulitis. Moderate lumbar spondylosis. No acute osseous abnormalit y. IMPRESSION: 1. No acute abdominal abnormality. Reviewed, dictated and finalized at location A.
[2022-05-21 17:57] VITALS: BP 109/46; PULSE 71; RESP 16; TEMP 36.4; O2SAT 99
[2022-05-21 18:52] LABS: Basophils Percent Auto 0.5 % (0.2-1.2); Eosinophils Absolute Auto 0.3 K/mm3 (0-0.3); Eosinophils Percent Auto 4.6 % (0-4.4); Hematocrit 36.3 % (37.0-47.0); Hemoglobin 11.9 g/dL (12.0-15.0); Immature Granulocyte Absolute 0.02 K/mm3 (0.00-0.031); Immature Granulocyte Percent A 0.4 % (0-0.5); Lymphocytes Absolute Auto 1.37 K/mm3 (0.9-3.2); Mean Corpuscular HGB Conc 32.8 g/dl (32-36); Mean Corpuscular Hemoglobin 29.8 pg (26-34); Mean Corpuscular Volume 90.8 fl (80-100); Mean Platelet Volume 8.7 fl (7.4-10.4); Monocytes Absolute Auto 0.5 K/mm3 (0.1-0.6); Neutrophils Absolute Auto 3.3 K/mm3 (1.3-6.7); Neutrophils Percent Auto 60.5 % (45.5-73.1); Platelet Count Result 202 k/mm3 (150-375); Red Cell Distribution Width 13.2 % (11.5-14.5); White Blood Count 5.5 K/mm3 (4.5-10.0)
[2022-05-21 18:53] LABS: Appearance Urine Clear (Clear); Bilirubin Urine Negative (Negative); Blood Urine Negative (Negative); Color Urine Yellow (Yellow); Glucose Urine UA Negative (Negative); Ketones Urine Negative (Negative); Leukocyte Esterase Ur Trace LEU/UL (Negative); Nitrate Urine Negative (Negative); Protein Urine Negative (Negative); Specific Grav Ur 1.025 (1.001-1.035); Urobilinogen Urine 0.2 mg/dL (<2.0); pH Urine 6.5 (5.0-9.0)
[2022-05-21 19:01] LABS: Add Urine Microscopic? NO
[2022-05-21 19:03] LABS: Alanine Aminotransferase 21 U/L (6-35); Alkaline Phosphatase 78 U/L (38-126); Anion Gap 7 mmol/L (8-16); Aspartate Amino Transferase 25 U/L (14-36); Bilirubin,Total 0.4 mg/dL (0.2-1.3); Blood Urea Nitrogen 21 mg/dL (7-17); Calcium 9.3 mg/dL (8.4-10.2); Carbon Dioxide 23 mmol/L (22-30); Chloride 107 mmol/L (98-107); Estimated CRCL calculation 47 ml/min; Estimated Glomerular Filt Rate > 60; Glucose 146 mg/dL (65-110); Potassium 3.9 mmol/L (3.4-5.0); Sodium 137 mmol/L (137-145)
[2022-05-21] MEDS: SODIUM CHLORIDE 0.9% IV 1,000 ML 999 ML IV CONT (19:18)
[2022-05-21] MEDS: KETOROLAC 30 MG/ML VIAL (*BKC) IV PUSH (19:19)
[2022-05-21] MEDS: ONDANSETRON INJ 4 MG/2 ML VIAL IV PUSH (19:19)
--- NOTE | 2022-05-21 19:41 | ED.ABDPAIN ---
HPI - Abdominal Pain General Chief Complaint: Abdominal Pain Stated Complaint: pain in right upper ABD for 2 weeks Time Seen by Provider: 05/21/22 18:45 Source: patient Mode of arrival: ambulatory Limitations: no limitations History of Present Illness HPI narrative: This is a 77 year old female who presents for evaluation of right side abdominal pain for 2-3 weeks. She reports this pain has been intermittent, and she occasionally has pain in her back. She has been taking tylenol for her pain. Her pain seems to be worse with movement. She denies any injury. She denies cough, fever, shortness of breath, nausea, vomiting, hematuria or UT I symptoms. She rates pain 9/10. Exacerbating factors: movement Relieving factors: nothing Related Data Home Medications Medication Instructions Recorded Confirmed aspirin 81 mg tablet,delayed 81 mg PO DAILY 12/20/19 12/20/19 release escitalopram oxalate 5 mg tablet 5 mg PO DAILY 04/24/22 (Lexapro) rosuvastatin 5 mg tablet (Crestor) 5 mg PO DAILY 04/24/22 trazodone 50 mg tablet 50 mg PO QHS PRN 04/24/22 Allergies Allergy/AdvReac Type Severity Reaction Status Date / Time tapentadol AdvReac Nausea Verified 04/24/22 10:56 Review of Systems Constitutional: Constitutional: Denies weakness Cardiovascular: Cardiovascular: Denies syncope, Denies rapid heart rate, Denies irregular heart rhythm, Denies leg edema and Denies dyspnea Respiratory: Respiratory: Denies chest congestion, Denies hemoptysis, Denies excessive phlegm production and Denies dyspnea Gastrointestinal: Gastrointestinal: Reports abdominal pain, Denies hematochezia, Denies diarrhea and Denies vomiting Genitourinary: Genitourinary: Denies hematuria and Denies dysuria Musculoskeletal: Musculoskeletal: Reports back pain, Denies joint swelling, Denies loss of height and Denies muscle weakness Neurologic: Denies syncope, Denies focal weakness and Denies weakness PMFSH Past Medical History Medical History Depression Diabetes mellitus Herpes zoster involving sacral dermatome Hyperlipidemia Surgical History Surgical History History of bladder surgery History of section History of cholecystectomy History of hernia repair History of lumpectomy Family History Family History Mother Hypertension Depression Other Unknown family medical history Social History Social History Smoking status: Never smoker Alcohol intake: current Substance use: never Substance use type: does not use Gender identity (if verbalized by the patient): Female Spiritual care concerns: No Agree to blood products: Yes Exam Narrative: GENERAL: Well-appearing, well-nourished, and in no acute distress. HEAD: Normocephalic, atraumatic EYES: PERRLA and EOMI, conjunctiva clear without discharge THROAT:Mucous membranes moist, Oropharynx normal without erythema, exudate, peritonsillar swelling or fluctuance NECK: Supple, without lymphadenopathy or mass RESPIRATORY: No respiratory distress, Airway patent, Respirations non-labored, Clear to auscultation without rales, rhonchi or wheeze HEART: Regular rate and rhythm. No murmur heard. Normal peripheral pulses. ABDOMEN: Soft, RUQ, RLQ, nondistended, normal active bowel sounds. No masses. No rebound or guarding, No organomegaly. EXTREMITIES: No edema, normal strength with full range of motion. SKIN: Warm, dry, normal color without rash NEURO: Alert and oriented x3. CN 2-12 grossly intact. No focal deficits. PSYCH: Normal mood and affect. Course Reevaluation(s) Reevaluation #1: I discussed with patient that labs are unremarkable. CT did not show acute process. She still has some pain but she declined pain medication because she does not have
--- NOTE | 2022-05-21 21:20 | PC.NURSE ---
patient removed iv and would not allow this rm to apply dressing. patient aggressively pulled discharge instructions and prescriptions out of this rn hand stating i have to go and refused to sign discharge papers. patient left through ems doors after being told that she was not suppose to fdo so.
== END 2022-05-21 21:25 | disposition home or self-care (01) ==
PROVIDERS: Nurse Practitioner Family; Emergency Provider General Practice; PCP Internal Medicine
DX: R10.9 Unspecified abdominal pain (principal); F32.A Depression, unspecified; E11.9 Type 2 diabetes mellitus without complications; E78.5 Hyperlipidemia, unspecified; Z79.82 Long term (current) use of aspirin; Z79.84 Long term (current) use of oral hypoglycemic drugs
CPT/HCPCS: 36415; 74177; 80053; 81003; 85025; 96361; 96374; 96375; 99284; J1885; J2405; J7030; Q9967

== ENCOUNTER 2022-08-26 08:40 | Outpatient (CLI) | payer BC, MEDICARE, OTHER, SELFPAY ==
--- NOTE | ~2022-08-26 | DEXA_ITS ---
Bone Density Report Name: GLORIA RYAN Age: 77 Sex: Female Ethnicity: White Date of : 1945 Indication: postmenopausal; screening for osteoporosis; height loss; Referring Provider: TRISH JULIAN Study: Bone densitometry was performed. Exam Date: August 26, 2022 Accession number: [id number] Bone Density: Region BMD T-score Z-score Classification AP Spine(L1, L2, L3) 0.907 -1.0 1.4 Normal Femoral Neck (Left) 0.856 0.1 2.2 Normal Total Hip (Left) 0.967 0.2 2.0 Normal Femoral Neck (Right) 0.780 -0.6 1.5 Normal Total Hip (Right) 0.892 -0.4 1.4 Normal Total Hip Mean 0.929 -0.1 1.7 Normal World Health Organization criteria for BMD impression classify patients as: Normal (T-score at or above -1.0), Osteopenia (T-score between -1.0 and -2.5), or Osteoporosis (T-score at or below -2.5). 10-year Fracture Risk: FRAX not reported because: All T-scores for Spine Total, Hip Total, Femoral Neck at or above -1.0 Clinical Information Provided by Patient: Patient maximum height was 62 Menopause Age: 50 No regular weight bearing exercise Onset of menses at age 17 Number of children 1 Impression: The patient has normal bone mass. Discussion: BONE DENSITY IS ABOVE THE MINIMUM DESIRABLE LEVEL AT ALL SKELETAL SITES TESTED. This patient?s bone mineral density is above the minimum desirable level (T-score -1.0 or better) at all sites measured. The patient should follow a healthful lifestyle (good nutrition with adequate calcium and vitamin D, and appropriate weight-bearing exercise). Follow-Up: Consider repeating this study in 5 years or sooner if there is some new clinical indication. Reported by: AMARI on 08/27/2022 8:39:00 AM. Reviewed, dictated and finalized at location [facility]
--- NOTE | ~2022-08-26 | MM_ITS ---
EXAMINATION: MM screening justin BI w fercho HISTORY: Screening TECHNIQUE: Craniocaudal and mediolateral oblique 3-D tomosynthesis images were obtained and synthetic 2-D images were generated. CAD analysis was submitted and interpreted. COMPARISON: No prior mammogram is available for comparison at this institution. BREAST PARENCHYMAL COMPOSITION: There are scattered areas of fibroglandular density. FINDINGS: There is no evidence of suspicious mass, calcification, or architectural distortion to sugg est malignancy in either breast. There has been no suspicious interval change. IMPRESSION: 1. No mammographic evidence of malignancy. 2. Recommend routine screening mammography in one year. BI-RADS Category 1: Negative Reviewed, dictated and finalized at location A.
== END 2022-08-26 08:41 | disposition home or self-care (01) ==
LOC: ANHIMG 08:43
PROVIDERS: PCP Internal Medicine; Visit Provider Obstetrics & Gynecology
DX: Z12.31 Encounter for screening mammogram for malignant neoplasm of breast (principal); Z78.0 Asymptomatic menopausal state
CPT/HCPCS: 77063; 77067; 77080

== ENCOUNTER 2022-09-26 19:02 | Emergency (ER) | payer BC, MEDICARE, OTHER, SELFPAY ==
--- NOTE | ~2022-09-26 | XR_ITS ---
EXAM: XR finger 4th LT min 2V, XR finger 5th LT min 2V DATE: 09/26/2022 19:41 (accession [id number]), 09/26/2022 19:42 (accession [id number]) HISTORY: fall, left fifth finger pain, pain/swelling left 4th finger . COMPARISON: None available. FINDINGS: Decreased mineralization. Subtle, minimally distracted oblique fractures at the anterior a spect of the bases of the left fourth and fifth middle phalanges. No lytic or blastic lesion. Scatter ed mild degenerative changes. No erosion or periosteal change. Mild soft tissue swelling in the finge rs. IMPRESSION: Minimally distracted oblique fractures at the anterior aspect of the bases of the fourth and fifth left middle phalanges. Reviewed, dictated and finalized at location K. NESS WRITER IMPRESSION: Minimally distracted oblique fractures at the anterior aspect of th e bases of the fourth and fifth left middle phalanges.
[2022-09-26 19:12] VITALS: BP 123/65; PULSE 73; RESP 16; TEMP 37.6; O2SAT 98
--- NOTE | 2022-09-26 19:42 | ED.UPPEXIN ---
HPI - Extremity Injury (Upper) General Chief Complaint: Extremity Injury, Upper Stated Complaint: INJURED FINGER Time Seen by Provider: 09/26/22 19:20 Source: patient, family, RN notes reviewed and old records reviewed Mode of arrival: ambulatory Limitations: no limitations History of Present Illness HPI narrative: 77-year-old female who presents to [facility] accompanied by her daughter with complaints of sustaining an injury to her left 4th and 5th finger when she fell this morning forward when she was walking dog. She states that she tripped on some rock and fell forward with her left 4th and 5th fingers hyperextending and fell onto her knee with abrasion noted to left knee. Patient denies any dizziness prior to fall or any LOC at time of fall. Patient has swelling and ecchymosis to her 4th and 5th finger of her left hand. Patient had ring with green stone on her left ring finger and was unable to remove due to swelling, ring had to be cut off along mid posterior band area and spread open to remove and given to patient and daughter. Patient denies any tingling or numbness to left 4th and 5th fingers. MD complaint: injury to: left and finger (4th and fifth) Onset (ago): hour(s) (0900 this morning) Handedness: right Place: outdoors Severity scale (1-10): 5 Treatments prior to arrival: other (none) Related Data Home Medications Medication Instructions Recorded Confirmed aspirin 81 mg tablet,delayed 81 mg PO DAILY 12/20/19 09/26/22 release escitalopram oxalate 5 mg tablet 5 mg PO DAILY 04/24/22 09/26/22 (Lexapro) rosuvastatin 5 mg tablet (Crestor) 5 mg PO DAILY 04/24/22 09/26/22 trazodone 50 mg tablet 150 mg PO QHS 04/24/22 09/26/22 Allergies Allergy/AdvReac Type Severity Reaction Status Date / Time tapentadol AdvReac Nausea Verified 09/26/22 19:45 Review of Systems Review of Systems: CONSTITUTIONAL: Denies fever, chills, or sweats. CARDIOVASCULAR: Denies chest pain, palpitations, or edema. RESPIRATORY: Denies cough or dyspnea. SKIN: Denies rash or itching. Denies lacerations or abrasions MUSCULOSKELETAL: Reports pain swelling and bruising to the 4th and 5th fingers of her left hand. NEUROLOGIC: Denies numbness, or weakness. All systems reviewed & are unremarkable except as noted in HPI and below PMFSH Past Medical History Medical History Depression Diabetes mellitus Herpes zoster involving sacral dermatome Hyperlipidemia Surgical History Surgical History History of bladder surgery History of section History of cholecystectomy History of hernia repair History of lumpectomy Family History Family History Mother Hypertension Depression Other Unknown family medical history Social History Social History Smoking status: Never smoker Alcohol intake: current Substance use: never Substance use type: does not use Gender identity (if verbalized by the patient): Female Spiritual care concerns: No Agree to blood products: Yes Comments At time of signature, agree with nursing past medical, surgical, social and family history. There is no relevant family history pertinent to the presenting complaint Exam Narrative: GENERAL: Well-appearing, well-nourished, and in no acute distress. HEAD: Normocephalic, atraumatic. EYES: PERRLA, conjunctivae clear NECK: Supple. CHEST: Speaks in full sentences. No respiratory distress. HEART: Regular rate and rhythm. Normal and equal peripheral pulses. EXTREMITIES: Left 4th and 5th finger has normal strength and sensation, decreased range of motion to left 4th and 5th finger.Positive edema and ecchymosis. with decreased flexion and extension. Normal sensation with sensitivity to light touch and pain. middle joint region
--- NOTE | 2022-09-26 19:44 | PC.NURSE ---
ring removed from left 4th finger with manual ring cutter.
== END 2022-09-26 20:28 | disposition left against medical advice (07) ==
PROVIDERS: Emergency Provider Registered Nurse; PCP Internal Medicine
DX: S62.625A Displaced fracture of middle phalanx of left ring finger, initial encounter for closed fracture (principal); S62.627A Displaced fracture of middle phalanx of left little finger, initial encounter for closed fracture; W18.09XA Striking against other object with subsequent fall, initial encounter; E11.9 Type 2 diabetes mellitus without complications; E78.5 Hyperlipidemia, unspecified; F32.A Depression, unspecified; Z79.82 Long term (current) use of aspirin
CPT/HCPCS: 29130 ×2; 73140; 99214; G0463

== ENCOUNTER 2023-09-05 22:18 | Emergency (ER) | payer BC, MEDICARE, OTHER, SELFPAY ==
--- NOTE | ~2023-09-05 | XR_ITS ---
EXAMINATION: XR chest 2V DATE: 09/05/2023 22:44 INDICATION: Left chest pain. TECHNIQUE: Frontal and lateral views of the chest were obtained. COMPARISON: CT abdomen and pelvis 05/21/2022 FINDINGS: There is no pneumonia, pleural effusion, pneumothorax. The heart size is normal. Surgical c lips in the right upper quadrant are likely from cholecystectomy. IMPRESSION: 1. No acute cardiopulmonary disease. Reviewed, dictated and finalized at location E.
--- NOTE | ~2023-09-05 | CT_ITS ---
EXAMINATION: CT cervical spine wo con DATE: 09/06/2023 00:49 INDICATION: Left-sided cervical radiculopathy. TECHNIQUE: Computed tomography (CT) of the cervical spine was performed without intravenous contrast. Automated exposure control and iterative reconstruction technique were employed. The dose-length pro duct was 268.24 mGy-cm. COMPARISON: None FINDINGS: There are surgical clips around the thyroid. There is 2 mm retrolisthesis of C3 on C4 and C 4 on C5 and C7 on T1. Vertebral body heights are normal. There is mildly decreased disc height at C4- C5 and severely decreased disc height at C5-C6, C6-C7, and C7-T1. There is interbody fusion at C6-C7. The following disc levels are specifically discussed: C2-C3: There is moderate right and mild left uncovertebral joint osteoarthritis. There is severe righ t and mild left facet joint osteoarthritis. There is mild right neural foraminal stenosis. There is m ild central canal stenosis. C3-C4: There is severe left uncovertebral joint osteoarthritis. There is severe bilateral facet joint osteoarthritis. There is mild bilateral neural foraminal stenosis. There is no central canal stenosi s. C4-C5: There is moderate right and severe left uncovertebral joint osteoarthritis. There is severe bi lateral facet joint osteoarthritis. There is mild left neural foraminal stenosis. There is mild centr al canal stenosis. C5-C6: There is severe bilateral uncovertebral joint osteoarthritis. There is severe right and modera te left facet joint osteoarthritis. There is mild bilateral neural foraminal stenosis. There is mild central canal stenosis. C6-C7: There is moderate bilateral uncovertebral joint hypertrophy. There is mild right and moderate left facet joint hypertrophy. There is mild bilateral neural foraminal stenosis. There is mild centra l canal stenosis. C7-T1: There is severe bilateral uncovertebral joint osteoarthritis. There is severe bilateral facet joint osteoarthritis. There is mild bilateral neural foraminal stenosis. There is mild central canal stenosis. IMPRESSION: 1. Severe cervical spondylosis. Reviewed, dictated and finalized at location E.
--- NOTE | 2023-09-05 22:19 | ECG_ITS ---
Measurements Intervals [place] Rate: 70 P: 54 AR: 160 QRS: -47 QRSD: 92 T: 48 QT: 376 QTc: 407 Interpretive Statements SINUS RHYTHM PATTERN CONSISTENT WITH PULMONARY DISEASE LEFT ANTERIOR FASCICULAR BLOCK [QRS AXIS <= -45, QR IN I, RS IN II] ABNORMAL ECG NO PREVIOUS ECG AVAILABLE FOR COMPARISON Electronically Signed On 09-06-2023 8:50:00 CDT by Sid Linares M.D.
[2023-09-05 22:28] VITALS: BP 133/54; PULSE 72; RESP 18; TEMP 36.4; O2SAT 99
[2023-09-05 22:44] LABS: Basophils Percent Auto 0.6 % (0.2-1.2); Eosinophils Absolute Auto 0.2 K/mm3 (0-0.3); Eosinophils Percent Auto 4.2 % (0-4.4); Hemoglobin 12.4 g/dL (12.0-15.0); Immature Granulocyte Absolute 0.02 K/mm3 (0.00-0.031); Immature Granulocyte Percent A 0.4 % (0-0.5); Lymphocytes Absolute Auto 1.43 K/mm3 (0.9-3.2); Lymphocytes Percent Auto 27.3 % (18.3-44.2); Mean Corpuscular HGB Conc 31.8 g/dl (32-36); Mean Corpuscular Hemoglobin 29.5 pg (26-34); Mean Corpuscular Volume 92.6 fl (80-100); Mean Platelet Volume 8.6 fl (7.4-10.4); Monocytes Absolute Auto 0.5 K/mm3 (0.1-0.6); Monocytes Percent Auto 9.7 % (2.6-8.5); Neutrophils Percent Auto 57.8 % (45.5-73.1); Platelet Count Result 229 k/mm3 (150-375); Red Blood Count 4.21 M/mm3 (4.2-5.4); Red Cell Distribution Width 13.1 % (11.5-14.5); White Blood Count 5.2 K/mm3 (4.5-10.0)
[2023-09-05 22:57] LABS: Alanine Aminotransferase 22 U/L (6-35); Albumin Level 4.3 g/dL (3.5-5.1); Alkaline Phosphatase 80 U/L (38-126); Anion Gap 5 mmol/L (8-16); Aspartate Amino Transferase 30 U/L (14-36); Bilirubin,Total 0.5 mg/dL (0.2-1.3); Blood Urea Nitrogen 21 mg/dL (7-17); Calcium 9.5 mg/dL (8.4-10.2); Carbon Dioxide 26 mmol/L (22-30); Chloride 107 mmol/L (98-107); Estimated CRCL calculation 60 ml/min; Estimated Glomerular Filt Rate > 60; Glucose 111 mg/dL (65-110); Lipase 132 U/L (23-300); Sodium 138 mmol/L (137-145)
[2023-09-05 23:00] LABS: INR 0.8; Prothrombin Time 11.7 Seconds (11.1-14.7)
[2023-09-05 23:01] LABS: Partial Thromboplastin Time 30.6 SECONDS (22.3-36.8)
[2023-09-05 23:06] VITALS: BP 121/73; PULSE 68; RESP 20; O2SAT 97
[2023-09-05] MEDS: ASPIRIN 81 MG CHEWABLE TABLET 324 MG PO (23:07)
[2023-09-05 23:08] LABS: Troponin I < 0.012 ng/mL (0.000-0.034)
[2023-09-06] MEDS: NITROGLYCERIN SL 0.4 MG TABLET SUBLINGUAL (00:06)
--- NOTE | 2023-09-06 00:06 | PC.NURSE ---
0006 - 1st dose SL nitro given. Pt reports chest pain 6/10. BP 113/61 0011 - 2nd dose SL nitro given. pt rates chest pain 4/10. BP 115/58 0016 - 3rd dose SL nitro given. pt rates CP 6/10. BP 108/63
[2023-09-06 00:24] VITALS: BP 110/56; PULSE 75; RESP 18; O2SAT 92
[2023-09-06] MEDS: ACETAMINOPHEN 325 MG TABLET 650 MG PO (00:28)
[2023-09-06 01:39] VITALS: BP 106/55; PULSE 63; RESP 21; O2SAT 96
[2023-09-06 02:04] LABS: Troponin I < 0.012 ng/mL (0.000-0.034)
--- NOTE | 2023-09-06 02:42 | ED.CHESTPAIN ---
HPI - Chest Pain General Chief Complaint: Chest Pain Stated Complaint: Chest pain, left arm tingling Time Seen by Provider: 09/05/23 23:19 History of Present Illness HPI narrative: Patient presents to the emergency department with persistent chest pressure stabbing left eye intermittent pain and left arm paresthesias. Pain has been a dull ache that is constant for the past few days. Nothing worsens or alleviates the pain. She denies any cardiac history. She has also had left arm paresthesias that are worse after sleeping on her left side at night. Finally her left eye gets a sharp stabbing pain that is described as a needle. Lasts just a couple seconds. Denies vision changes. She has an clip wrapper that she sees regularly but he is unaware of this pain. Symptoms have been ongoing for months. Related Data Home Medications Medication Instructions Recorded Confirmed aspirin 81 mg tablet,delayed 81 mg PO DAILY 12/20/19 05/18/23 release escitalopram oxalate 5 mg tablet 5 mg PO DAILY 04/24/22 05/18/23 (Lexapro) rosuvastatin 5 mg tablet (Crestor) 5 mg PO DAILY 04/24/22 05/18/23 trazodone 50 mg tablet 150 mg PO QHS 04/24/22 05/18/23 dulaglutide 0.75 mg/0.5 mL 0.75 mg subcut WEEKLY 05/18/23 05/18/23 subcutaneous pen injector (Trulicity) Allergies Allergy/AdvReac Type Severity Reaction Status Date / Time tapentadol AdvReac Nausea Verified 09/05/23 22:34 Review of Systems Review of Systems: Negative except what is documented in the [facility] Past Medical History Medical History Depression Diabetes mellitus Herpes zoster involving sacral dermatome Hyperlipidemia Surgical History Surgical History History of bladder surgery History of section History of cholecystectomy History of hernia repair History of lumpectomy Family History Family History Mother Hypertension Depression Other Unknown family medical history Social History Social History Smoking status: Never smoker Alcohol intake: current Substance use: never Substance use type: does not use Lack of Transportation: No Lack of Food: Never True Current Housing: I Have Housing Concerned About Future Housing: No Difficulty Paying Gas/Electric Bills: No Difficulty Paying for Meds: No Currently Unemployed: No Education: Bachelor's Degree Difficulty w/ Childcare or Family Care: No Gender identity (if verbalized by the patient): Female Spiritual care concerns: No Agree to blood products: Yes Exam Narrative: GENERAL: Well-appearing, well-nourished, and in no acute distress. HEAD: Normocephalic, atraumatic. EYES: PERRLA and EOMI. ENT: Nares clear, no rhinorrhea or epistaxis. Mucous membranes moist. NECK: Supple. CHEST: Clear to auscultation. No respiratory distress. HEART: Regular rate and rhythm. ABDOMEN: Soft, nontender, nondistended. EXTREMITIES: Normal range of motion. No edema. SKIN: Warm, dry, no rash. NEURO: No focal deficits. Alert and oriented x3. PSYCH: Normal mood and affect. Course Course Emergency Course: Telemetry ordered due to chest pain to evaluate for dysrhythmias. Evaluated by myself. Rhythm NS Rate 72 Vital Signs Vital signs: Vital Signs Temperature 36.4 C 09/05/23 22:28 Pulse Rate 72 09/05/23 22:28 Respiratory Rate 18 09/05/23 22:28 Blood Pressure 133/54 L 09/05/23 22:28 Pulse Oximetry 99 09/05/23 22:28 Oxygen Delivery Room Air 09/05/23 22:28 Temperature 36.4 C 09/05/23 22:28 Pulse Rate 57 L 09/06/23 04:11 Respiratory Rate 20 09/06/23 04:11 Blood Pressure 116/49 L 09/06/23 04:11 Pulse Oximetry 97 09/06/23 04:11 Oxygen Delivery Room Air 09/05/23 22:28 MDM - Chest Pain MDM Narrative
[2023-09-06 02:57] VITALS: PULSE 64; RESP 21; O2SAT 97
[2023-09-06 04:11] VITALS: BP 116/49; PULSE 57; RESP 20; O2SAT 97
== END 2023-09-06 05:33 | disposition home or self-care (01) ==
PROVIDERS: Emergency Provider Emergency Medicine; PCP Internal Medicine
DX: R07.9 Chest pain, unspecified (principal); E11.9 Type 2 diabetes mellitus without complications; E78.5 Hyperlipidemia, unspecified
CPT/HCPCS: 36415; 71046; 72125; 80053; 83690; 84484; 85025; 85610; 85730; 93005; 99284; A9270

== ENCOUNTER 2024-08-22 21:45 | Emergency (ER) | payer BC, MEDICARE, OTHER, SELFPAY ==
--- NOTE | ~2024-08-22 | XR_ITS ---
EXAMINATION: XR chest 1V DATE: 08/22/2024 22:53 INDICATION: Shortness of breath. TECHNIQUE: A single frontal view of the chest was obtained. COMPARISON: Chest 2 views 09/05/2023 FINDINGS: There is no pneumonia, pleural effusion, or pneumothorax. The heart size is normal. Surgica l clips in the right upper quadrant are likely from cholecystectomy. There are surgical clips in the neck. IMPRESSION: 1. No acute cardiopulmonary disease. Reviewed, dictated and finalized at location A.
--- NOTE | ~2024-08-22 | XR_ITS ---
EXAMINATION: XR hip RT 2V w AP pelvis DATE: 08/22/2024 22:53 INDICATION: Right hip pain. TECHNIQUE: An anteroposterior view of the pelvis and 2 views of right hip were obtained. COMPARISON: None. FINDINGS: Alignment is normal. No fracture. There is severe lumbar spondylosis. There is mild osteoar thritis of the hips. IMPRESSION: 1. Mild osteoarthritis of the hips. Reviewed, dictated and finalized at location A.
[2024-08-22 21:46] VITALS: BP 143/66; PULSE 81; RESP 18; TEMP 36.4; O2SAT 96
[2024-08-22 22:29] VITALS: BP 133/59; PULSE 71; O2SAT 97
[2024-08-22 22:44] VITALS: TEMP 36.5
--- NOTE | 2024-08-22 22:49 | PC.NURSE ---
pt to radiology at this time
[2024-08-22 23:19] LABS: Basophils Percent Auto 0.5 % (0.2-1.2); Eosinophils Absolute Auto 0.2 K/mm3 (0-0.3); Eosinophils Percent Auto 3.5 % (0-4.4); Hematocrit 40.1 % (37.0-47.0); Hemoglobin 13.2 g/dL (12.0-15.0); Immature Granulocyte Absolute 0.01 K/mm3 (0.00-0.031); Immature Granulocyte Percent A 0.2 % (0-0.5); Lymphocytes Absolute Auto 1.45 K/mm3 (0.9-3.2); Lymphocytes Percent Auto 26.5 % (18.3-44.2); Mean Corpuscular HGB Conc 32.9 g/dl (32-36); Mean Corpuscular Hemoglobin 29.4 pg (26-34); Mean Corpuscular Volume 89.3 fl (80-100); Mean Platelet Volume 8.7 fl (7.4-10.4); Monocytes Absolute Auto 0.5 K/mm3 (0.1-0.6); Neutrophils Absolute Auto 3.3 K/mm3 (1.3-6.7); Neutrophils Percent Auto 60.3 % (45.5-73.1); Platelet Count Result 224 k/mm3 (150-375); Red Blood Count 4.49 M/mm3 (4.2-5.4); Red Cell Distribution Width 13.3 % (11.5-14.5); White Blood Count 5.5 K/mm3 (4.5-10.0)
[2024-08-22 23:24] LABS: Influenza A QL RT-PCR Negative (Negative); Influenza B QL RT-PCR Negative (Negative); RSV RNA, RT-PCR Negative (Negative); SARS-CoV-2 RNA PCR Negative (Negative)
[2024-08-22 23:30] LABS: Alanine Aminotransferase 34 U/L (6-35); Albumin Level 4.1 g/dL (3.5-5.1); Alkaline Phosphatase 106 U/L (38-126); Anion Gap 9 mmol/L (4-12); Aspartate Amino Transferase 36 U/L (14-36); Bilirubin,Total 0.6 mg/dL (0.2-1.3); Blood Urea Nitrogen 19 mg/dL (7-17); Calcium 10.3 mg/dL (8.4-10.2); Carbon Dioxide 28 mmol/L (22-30); Chloride 101 mmol/L (98-107); Estimated CRCL calculation 46 ml/min; Estimated Glomerular Filt Rate > 60; Glucose 143 mg/dL (65-110); Potassium 3.7 mmol/L (3.4-5.0); Sodium 138 mmol/L (137-145)
[2024-08-22] MEDS: SODIUM CHLORIDE 0.9% IV 1,000 ML 999 ML IV CONT (23:54)
--- NOTE | 2024-08-23 00:01 | ED.GENADULT ---
HPI - General Adult General Chief complaint: Unspecified Stated complaint: bodyaches, earache Time Seen by Provider: 08/22/24 22:36 History of Present Illness HPI narrative: Patient is a 79-year-old female who presents the emergency department this evening complaining of numbness and tingling to her bilateral fingers in bilateral toes. Patient admits that she does have a history of diabetes and diabetic neuropathy and is supposed to be on gabapentin 300 mg 3 times a day but the gabapentin makes her sleepy and drowsy so she has not been taking it as much, maybe once a day. Patient also complains of arthritis pain stating that she has arthritis from her head to her toes. She says what has been bothering her the most is her right hip. Patient has not been taking anything for her arthritis such as Tylenol or ibuprofen stating that she thought that she was allergic to ibuprofen but is not sure anymore why she has not been taking it. Patient states that she believes that it might be due to an upset stomach. Denies any chest pain, shortness of breath, nausea vomiting or abdominal pain and denies any urinary symptoms including dysuria or hematuria. There are no other modifying, alleviating, or precipitating factors at this time. Related Data Home Medications Medication Instructions Recorded Confirmed aspirin 81 mg tablet,delayed 81 mg PO DAILY 12/20/19 05/18/23 release escitalopram oxalate 5 mg tablet 5 mg PO DAILY 04/24/22 05/18/23 (Lexapro) rosuvastatin 5 mg tablet (Crestor) 5 mg PO DAILY 04/24/22 05/18/23 trazodone 50 mg tablet 150 mg PO QHS 04/24/22 05/18/23 dulaglutide 0.75 mg/0.5 mL 0.75 mg subcut WEEKLY 05/18/23 05/18/23 subcutaneous pen injector (Trulicity) Allergies Allergy/AdvReac Type Severity Reaction Status Date / Time tapentadol AdvReac Nausea Verified 09/05/23 22:34 Review of Systems Review of Systems: All systems are reviewed and are negative unless stated otherwise in the HPI. [facility] Past Medical History Medical History Depression Diabetes mellitus Herpes zoster involving sacral dermatome Hyperlipidemia Surgical History Surgical History History of bladder surgery History of section History of cholecystectomy History of hernia repair History of lumpectomy Family History Family History Mother Hypertension Depression Other Unknown family medical history Social History Social History Smoking status: Never smoker Alcohol intake: current Substance use: never Substance use type: does not use Lack of Transportation: No Lack of Food: Never True Current Housing: I Have Housing Concerned About Future Housing: No Difficulty Paying Gas/Electric Bills: No Difficulty Paying for Meds: No Currently Unemployed: No Education: Bachelor's Degree Difficulty w/ Childcare or Family Care: No Gender identity (if verbalized by the patient): Female Spiritual care concerns: No Agree to blood products: Yes Exam Narrative: General: Alert, awake, afebrile, in no acute distress. HEENT: PERRL, no rhinorrhea, no post nasal drip, oropharynx clear. Cardiovascular: Regular rate and rhythm, no murmurs, rubs or gallops, no peripheral edema. Respiratory: Clear to auscultation bilaterally, no tachypnea, no wheezing, no rhonchi, no rubs, no respiratory distress. Abdomen: Soft, nontender, nondistended, no rebound, no guarding, no peritoneal signs. Musculoskeletal: No joint swelling or deformity, normal muscle tone. Skin: No rashes or petechia, no signs of infection. Neurological: Alert and oriented to person, place, and time. Follows all commands. No focal deficits, speech is clear and fluent. Course Vital Signs Vital signs: Vital Signs Tem
[2024-08-23] MEDS: KETOROLAC 15 MG/ML VIAL (*BKC) IV PUSH (00:15)
[2024-08-23 01:56] LABS: Add Urine Microscopic? YES; Appearance Urine Clear (Clear); Bilirubin Urine Negative (Negative); Blood Urine Negative (Negative); Color Urine Yellow (Yellow); Glucose Urine UA Negative (Negative); Ketones Urine Negative (Negative); Leukocyte Esterase Ur 3+ LEU/UL (Negative); Nitrate Urine Negative (Negative); Non Pathogenic Casts 0-2; Protein Urine Negative (Negative); RBC Urine 0-2 /hpf (0-2); Specific Grav Ur 1.008 (1.001-1.035); Squamous Epithelial Cell Urine None Seen /hpf (Few); Urobilinogen Urine 0.2 mg/dL (<2.0)
[2024-08-23 02:01] LABS: Bacteria Urine Trace /hpf
[2024-08-23 02:15] VITALS: BP 136/62; PULSE 76; RESP 19; TEMP 36.6; O2SAT 97
== END 2024-08-23 02:17 | disposition home or self-care (01) ==
PROVIDERS: Emergency Provider Emergency Medicine; PCP Internal Medicine
DX: G62.9 Polyneuropathy, unspecified (principal); M19.90 Unspecified osteoarthritis, unspecified site; Z20.822 Contact with and (suspected) exposure to COVID-19; F32.A Depression, unspecified; E78.5 Hyperlipidemia, unspecified; E11.9 Type 2 diabetes mellitus without complications; R82.998 Other abnormal findings in urine
CPT/HCPCS: 36415; 71045; 73502; 80053; 81001; 83735; 85025; 87086; 87637; 96361; 96374; 99284; J1885; J7030